=== PATIENT | female | born 1960 | race Caucasian/White ===

== ENCOUNTER 2024-11-12 09:59 | Emergency (ER) | payer OTHER ==
[~2024-11-12] VITALS: Ht 162.6 cm; Wt 49.9 kg
[2024-11-12] MEDS ORDERED: IBUP-2413 PO (10:10)
[2024-11-12] MEDS ORDERED: KETOROLAC TROMETHAMINE 15 MG INJ ONE (10:26)
[2024-11-12] MEDS ORDERED: ACETAMINOPHEN 500 MG TABLET ONE (10:26)
[2024-11-12] MEDS: IV NORMAL SALINE 1000 ML BAG IV ONE (10:42)
[2024-11-12] MEDS: ACETAMINOPHEN 500 MG TABLET PO ONE (10:42)
[2024-11-12 10:43] LABS: PLATELET COUNT (AUTO) 218 K/uL (179-408); RED BLOOD CELL COUNT(AUTO) 4.50 MIL/uL (3.63-4.92); RED CELL DISTRIBUTION WIDTH 14.1 % (12.3-17.7); WHITE BLOOD COUNT (AUTO) 4.7 K/uL (3.8-11.8)
[2024-11-12] MEDS: KETOROLAC TROMETHAMINE 15 MG INJ IVP ONE (10:43)
[2024-11-12 10:52] LABS: CREATININE 0.8 mg/dL (0.6-1.3); SODIUM SERUM 130.0 mmol/L (136-145); UREA NITROGEN, BLOOD 10.0 mg/dL (7-18)
[2024-11-12 10:58] LABS: ASPARTATE AMINOTRANSFERASE 229.0 U/L (15-37); TOTAL PROTEIN, SERUM 8.1 g/dL (6.4-8.2)
[2024-11-12] MEDS ORDERED: IBUP-1955 PO (12:58)
[2024-11-12 13:02] LABS: *BILIRUBIN,URIN NEGATIVE (NEGATIVE); *CLARITY,URINE CLEAR (CLEAR); *COLOR,URINE YELLOW (YELLOW); *KETONES,URINE 3+ (NEGATIVE); *PROTEIN,URINE TRACE (NEGATIVE); *UROBILINOGEN,URINE 0.2 E.U./dl (NORMAL); LEUKOCYTE ESTERASE ,URINE 1+ (NEGATIVE); NITRITE, URINE NEGATIVE (NEGATIVE); UGLUCOSE NEGATIVE (NEGATIVE)
[2024-11-12 13:21] LABS: *BLOOD, URINE TRACE (NEGATIVE)
[2024-11-12 13:22] LABS: SQUAMOUS EPITHELIAL CELL,UR FEW /HPF (NONE SEEN)
[2024-11-12 13:55] VITALS: BP 128/81; TEMP 97.9; O2SAT 96
== END 2024-11-12 13:57 | disposition home or self-care (01) ==
LOC: ER 09:59
DX: B34.9 Viral infection, unspecified (principal); R50.9 Fever, unspecified; R00.0 Tachycardia, unspecified; R06.00 Dyspnea, unspecified; R10.9 Unspecified abdominal pain; R79.89 Other specified abnormal findings of blood chemistry; Z60.2 Problems related to living alone; Z20.822 Contact with and (suspected) exposure to COVID-19
CPT/HCPCS: 99285; 96374; 76705; 96361; 71045; 87426; 87804 ×2; 80076; 80048; 81001; 85025; 84145; 85730; 87040 ×2; 87086; 36415; 93005; 83605; J1885; J7040 ×2; A4606; A4663; A9150